=== PATIENT | female | born 1995 | race African-American/Black ===

== ENCOUNTER 2020-03-20 23:20 | Emergency (ER) | payer SELFPAY ==
[~2020-03-20] VITALS: Ht 175.3 cm; Wt 74.0 kg
[2020-03-20 23:44] VITALS: BP 120/80
== END 2020-03-21 00:38 | disposition home or self-care (01) ==
LOC: ER 23:20
DX: H92.01 Otalgia, right ear (principal); H69.81 Other specified disorders of Eustachian tube, right ear
CPT/HCPCS: 99282